=== PATIENT | male | born 1990 | race Caucasian/White ===

== ENCOUNTER 2024-04-18 21:50 | Inpatient (IN) ==
[2024-04-18] MEDS: fentaNYL citrate PF 100 MCG/2 ML VIAL ONE (22:14)
[2024-04-18] MEDS: fentaNYL citrate PF 100 MCG/2 ML VIAL IV STA (22:14)
[2024-04-18] MEDS: fentaNYL citrate PF 100 MCG/2 ML VIAL IV PRN (22:38)
[2024-04-18] MEDS: HYDROmorphone INJ 1 MG/ML SYRINGE IV STA ×2 (23:11→23:15)
--- NOTE | 2024-04-18 23:30 | XRay Report ---
Exam(s): XR RIGHT FEMUR, 2 views EXAM: XR Right Femur, 2 Views CLINICAL HISTORY: Reason for exam: fall. TECHNIQUE: Frontal and lateral views of the right femur. COMPARISON: No relevant prior studies available. FINDINGS: Bones/joints: Spiral fracture of the proximal femoral shaft. Soft tissues: Unremarkable. IMPRESSION: Spiral fracture of the proximal femoral shaft. Electronically signed by: Adi Acosta MD 04/18/24 23:29 PM
--- NOTE | 2024-04-18 23:31 | XRay Report ---
Exam(s): XR PELVIS, 1-2 views EXAM: XR Pelvis, 1 or 2 Views CLINICAL HISTORY: Reason for exam: fall, pain. TECHNIQUE: Frontal view of the pelvis. COMPARISON: No relevant prior studies available. FINDINGS: Bones/joints: No fracture or malalignment in the pelvis. Right subtrochanteric femoral fracture. IMPRESSION: 1. No fracture or malalignment in the pelvis. 2. Right subtrochanteric femoral fracture. Electronically signed by: Adi Acosta MD 04/18/24 23:30 PM
[2024-04-18] MEDS: SODIUM CHLORIDE 0.9% 1,000 ML IV SCH (23:40)
[2024-04-19] MEDS: HYDROmorphone INJ 0.5 MG/0.5 ML SYR IV PRN ×2 (00:43→04:20)
[2024-04-19] MEDS: LORazepam 1 MG TAB SL STA (01:08)
[2024-04-19] MEDS: ACETAMINOPHEN 1,000 MG/100 ML VIAL IV STA (01:10)
[2024-04-19] MEDS: LORazepam 1 MG/1 ML SYR ED Inj Use IV STA (01:15)
--- NOTE | 2024-04-19 01:41 | Emergency Department Note ---
History of Present Illness General Chief complaint: Hip Pain Stated complaint: R HIP PAIN History of Present Illness Maximum Pain Intensity: 4 This 33-year-old male who states he is healthy with no active medical problems who is visiting from [place] for his brothers upcoming marriage presents ER complaining of right hip and thigh pain after he fell on the ice tonight. Patient could not get up. Patient denies chest pain, dyspnea, abdominal pain, numbness, tingling, localized weakness. No prior fracture to this leg. Home Medications Medication Instructions Recorded Confirmed Type sertraline 100 mg tablet 200 mg PO DAILY 04/18/24 04/18/24 History trazodone 50 mg tablet 50 mg PO UD 04/18/24 04/18/24 History Past Med/Surg History Problem List (Updated 04/19/24 @ 01:41 by Arlen Meyer PA-C) Femur fracture, right (Acute) Social History Smoking Status: Never smoker Feels Safe at Home: Yes Review of Systems A total of 10 systems reviewed and were otherwise negative Physical Exam Vital Signs Vital Signs - 24 hr 04/18/24 22:03 04/18/24 22:03 04/18/24 22:48 Temperature 37.3 C 37.3 C Temperature Source Oral Oral Pulse Rate 75 Pulse Rate [Right Finger] 73 80 Pulse Rhythm Regular Pulse Rhythm [Right Finger] Regular Pulse Strength Normal Pulse Strength [Right Finger] Normal Respiratory Rate 18 18 22 Respiratory Effort / Characteristics Non-Labored Spontaneous Non-Labored Spontaneous Respiratory Depth Normal Normal Respiratory Pattern Regular Regular Blood Pressure 116/53 L Blood Pressure [Right Arm] 113/88 140/83 Blood Pressure Mean 74 Blood Pressure Mean [Right Arm] 96 102 Blood Pressure Position Lying Blood Pressure Position [Right Arm] Lying Pulse Oximetry 98 98 97 Oxygen Delivery Method Room Air Room Air Room Air Sepsis Recent Fever Within 48 Hours No Sepsis New/Unexplained Change in Mental Status No Sepsis Action Taken by Nursing No Action Required 04/19/24 00:07 Temperature Temperature Source Pulse Rate 72 Pulse Rate [Right Finger] Pulse Rhythm Pulse Rhythm [Right Finger] Pulse Strength Pulse Strength [Right Finger] Respiratory Rate Respiratory Effort / Characteristics Respiratory Depth Respiratory Pattern Blood Pressure Blood Pressure [Right Arm] Blood Pressure Mean Blood Pressure Mean [Right Arm] Blood Pressure Position Blood Pressure Position [Right Arm] Pulse Oximetry Oxygen Delivery Method Sepsis Recent Fever Within 48 Hours Sepsis New/Unexplained Change in Mental Status Sepsis Action Taken by Nursing VITALS: Vitals are noted on the nurse's note and reviewed by myself. Vital signs stable. GENERAL: Pleasant male who appears in pain, in no acute distress, nondiaphoretic, well-developed well-nourished. SKIN: The skin was without rashes, erythema, edema, or bruising. There is no tenting of the skin. Capillary reflex less than 2 seconds. HEAD: Normocephalic atraumatic. EARS: External auditory canals clear EYES: Pupils equal round and reactive to light and accommodation. Conjunctivae without injection, sclerae without icterus. Extraocular movements intact. NOSE: Patent, no discharge. MOUTH: Mucous membranes moist. Pharynx without erythema or exudate. Uvula midline. Airway patent. Tongue does not deviate. NECK: Supple without nuchal rigidity. No lymphadenopathy. No thyromegaly. Cervical spine is nontender. No JVD. HEART: Regular rate and rhythm LUNGS: Clear to auscultation bilaterally without wheezes, rales or rhonchi. No retractions or accessory muscle use. ABDOMEN: Positive bowel sounds x 4. Normal tympanic percussion. Soft, nontender, without masses or organomegaly. Swartz sign negative. No guarding or rebound tenderness. No CVA tenderness MUSCULOSKELETAL: No muscle atrophy, erythema, or edema noted. No thoracic or lumbar tenderness, right hip and proximal femur tender to palpation, right knee tib-fib ankle and foot nontender to palpation. All other extremities nontender to palpation. Pedal pulses +2 equal and present bilaterally. NEURO: Patient was alert and oriented to person place and time. Normal sensation to light and sharp touch. No focal neurological deficits. Course Administered Medications Discontinued Medications Fentanyl Citrate (Fentanyl Citrate Pf 100 Mcg/2 Ml Vial) Confirm Administered Dose 100 mcg .ROUTE .STK-MED ONE Stop: 04/18/24 22:02 Last Admin: 04/18/24 22:14 Dose: Not Given Documented By: CHARAN Fentanyl Citrate (Fentanyl Citrate Pf 100 Mcg/2 Ml Vial) 100 mcg IV NOW STA Stop: 04/18/24 22:03 Last Admin: 04/18/24 22:14 Dose: 100 mcg Documented By: CHARAN Fentanyl Citrate (Fentanyl Citrate Pf 100 Mcg/2 Ml Vial) 50 mcg IV Q15M PRN PRN Reason: Pain Stop: 05/02/24 22:01 Last Admin: 04/18/24 22:56 Dose: 50 mcg Documented By: Admin: 04/18/24 22:38 Dose: 50 mcg Documented By: CHARAN Hydromorphone HCl (Hydromorphone Inj 0.5 Mg/0.5 Ml Syr) 0.5 mg IV Q15M PRN PRN Reason: Pain Stop: 05/02/24 23:08 Last Admin: 04/19/24 00:43 Dose: 0.5 mg Documented By: PENNY Hydromorphone HCl (Hydromorphone Inj 1 Mg/Ml Syringe) 1 mg IV NOW STA Stop: 04/18/24 23:10 Last Admin: 04/18/24 23:15 Dose: 1 mg Documented By: CHARAN Hydromorphone HCl (Hydromorphone Inj 1 Mg/Ml Syringe) 1 mg IV NOW STA Stop: 04/18/24 23:11 Last Admin: 04/18/24 23:11 Dose: Not Given Documented By: CHARAN Sodium Chloride (Nss) 1,000 mls @ 125 mls/hr IV .Q8H MAYTE Stop: 04/19/24 23:14 Last Admin: 04/18/24 23:40 Dose: 125 mls/hr Documented By: PENNY Acetaminophen (Ofirmev) 1,000 mg in 100 mls @ 400 mls/hr IV NOW STA Stop: 04/19/24 01:17 Last Infusion: 04/19/24 02:41 Dose: Infused Documented By: Admin: 04/19/24 01:10 Dose: 400 mls/hr Documented By: PENNY Lorazepam (Lorazepam 1 Mg/1 Ml Syr Ed Inj Use) 1 mg IV ONE STA Stop: 04/19/24 01:03 Last Admin: 04/19/24 01:15 Dose: Not Given Documented By: PENNY Lorazepam (Lorazepam 1 Mg Tab) 1 mg SL NOW STA Stop: 04/19/24 01:04 Last Admin: 04/19/24 01:08 Dose: 1 mg Documented By: PENNY Medical Decision Making Medical Records Attestation: I reviewed the patient's medical records. Home Medications Current Medication List: was personally reviewed by me Laboratory Data Attestation: I reviewed the patient's lab results. 04/18/24 22:09 04/18/24 22:09 Lab Results 04/18/24 04/18/24 Range/Units 22:09 22:49 WBC 11.80 H (4.8-10.8) K/ul RBC 5.01 (4.70-6.10) M/uL Hgb 13.9 L (14.0-18.0) g/dl Hct 42.2 (42.0-52.0) % MCV 84.2 (80.0-100.0) fL MCH 27.7 (25.0-34.0) pg MCHC 32.9 (32.0-36.0) g/dL RDW Std Deviation 41.9 (36.4-46.3) fL RDW Coeff of [place] 13.6 (11.5-14.5) % Plt Count 287 (130-400) K/uL MPV 9.1 L (9.4-12.4) fL Immature Gran % (Auto) 0.5 % Neut % (Auto) 58.8 % Lymph % (Auto) 32.0 % Pope % (Auto) 6.4 % Eos % (Auto) 1.5 % Baso % (Auto) 0.8 % Neut # (Auto) 6.93 H (1.40-6.50) K/uL Lymph # (Auto) 3.78 H (1.20-3.40) K/uL Pope # (Auto) 0.75 H (0.11-0.59) K/uL Eos # (Auto) 0.18 (0.00-0.50) K/uL Baso # (Auto) 0.10 (0.00-0.20) K/uL Immature Gran # (Auto) 0.06 (0.01-0.20) K/uL Sodium 141 (136-145) mmol/L Potassium 3.6 (3.5-5.1) mmol/L Chloride 107 (98-107) mmol/L Carbon Dioxide 25 (21-32) mmol/L Anion Gap 9 (3-11) BUN 11 (6-23) mg/dl Creatinine 0.91 (0.6-1.4) mg/dl Est Cr Clr Drug Dosing 138.8 ml/min eGFR 114.13 BUN/Creatinine Ratio 12.1 (10-20) Glucose 115 H (70-99(Fasting)) mg/dl Calcium 8.9 (8.6-10.3) mg/dl Total Bilirubin 0.3 (0.2-1.0) mg/dl AST 17 (13-39) U/L ALT 12 (7-52) U/L Alkaline Phosphatase 52 (34-104) U/L Total Creatine Kinase 80 (30-223) U/L Total Protein 6.6 (6.0-8.3) gm/dl Albumin 4.6 (3.4-5.0) gm/dl Globulin 2.0 L (2.5-4.0) gm/dl Albumin/Globulin Ratio 2.3 H (0.9-2) Blood Type A Positive Antibody Screen NEGATIVE Imaging Data Attestation: I personally reviewed and interpreted this imaging study as follows: Radiologist's Impression: Femur X-Ray 04/18/24 22:02 Exam(s): XR RIGHT FEMUR, 2 views EXAM: XR Right Femur, 2 Views CLINICAL HISTORY: Reason for exam: fall. TECHNIQUE: Frontal and lateral views of the right femur. COMPARISON: No relevant prior studies available. FINDINGS: Bones/joints: Spiral fracture of the proximal femoral shaft. Soft tissues: Unremarkable. IMPRESSION: Spiral fracture of the proximal femoral shaft. Electronically signed by: Adi Acosta MD 04/18/24 23:29 PM Pelvis X-Ray 04/18/24 22:02 Exam(s): XR PELVIS, 1-2 views EXAM: XR Pelvis, 1 or 2 Views CLINICAL HISTORY: Reason for exam: fall, pain. TECHNIQUE: Frontal view of the pelvis. COMPARISON: No relevant prior studies available. FINDINGS: Bones/joints: No fracture or malalignment in the pelvis. Right subtrochanteric femoral fracture. IMPRESSION: 1. No fracture or malalignment in the pelvis. 2. Right subtrochanteric femoral fracture. Electronically signed by: Adi Acosta MD 04/18/24 23:30 PM [facility] Narrative prior records reviewed and summarized above. Triage Nursing notes reviewed. Additional history obtained from family The patient's history was concerning for right thigh hip injury. Differential diagnosis: Etiologies such as fracture, dislocation, neurovascular compromise, compartment syndrome, soft tissue injury, as well as others were entertained. Physical examination: Consistent with an isolated hip injury. ER treatment provided: IV lock Fentanyl, Dilaudid, Tylenol, Ativan NPO Bedrest On reassessment the patient felt better. Diagnostics interpreted by me: The labs Independently Interpreted by myself revealed blood bank was sent. Stable H&H, glucose 115 Imaging studies: Xrays reviewed and read by radiology The patient has right proximal femur fracture. Patient was placed in a knee immobilizer and neurovascular status was rechecked after placement is intact. Orthopedics was consulted and the case is discussed. Patient will be admitted to the orthopedic service. They recommend knee immobilizer and if this does not work then posterior long-leg. Patient was placed NPO. He is agreeable to treatment plan and was admitted to the orthopedic service. Consultation: A consultation was placed with orthopedics. The case was discussed and diagnostics were reviewed. The patient was evaluated in the ER for further treatment. The chart was completed utilizing [employer] Speech voice recognition software. Grammatical errors, random word insertions, pronoun errors, and incomplete sentences are an occassional consequence of this system due to software limitations, ambient noise, and hardware issues. Any formal questions or concerns about the content, text, or information contained within the body of this dictation should be directly addressed to the physician pharmacy technician assistant for clarification. Impression & Plan Femur fracture, right Discharge Plan Visit Data Chief Complaint: Hip Pain Stated Complaint: R HIP PAIN ED Provider: Yg Ruelas ED Midlevel Provider: Arlen Meyer Discharge Problem: Femur fracture, right Patient Disposition: Admitted As Inpatient Condition: Good Discharge Instructions Interventions: ED Discharge Assessment Last Done: 04/19/24 01:50 Discharge Problem: Femur fracture, right Qualifiers: Encounter type: initial encounter Femur location: unspecified portion of femur Fracture type: closed Fracture morphology: unspecified fracture morphology Q ualified Code(s): S72.91XA - Unspecified fracture of right femur, initial encounter for closed fracture
[2024-04-19] MEDS ORDERED: ONDANSETRON INJ 2 MG/ML 2 ML VIAL IV PRN ×2 (01:50→10:44)
[2024-04-19] MEDS ORDERED: diphenhydrAMINE 50 MG/ML VIAL IV PRN (01:50)
[2024-04-19] MEDS ORDERED: oxyCODONE HCL IR 5 MG TAB (IMMEDIATE RELEASE) PO PRN (01:50)
[2024-04-19 02:04] LABS: Basophils % (auto) 0.8 %; Eosinophils # (auto) 0.18 K/uL (0.00-0.50); Eosinophils % (auto) 1.5 %; Hematocrit (blood only) 42.2 % (42.0-52.0); Hemoglobin 13.9 g/dl (14.0-18.0); Immature Granulocytes # (auto) 0.06 K/uL (0.01-0.20); Immature Granulocytes % (auto) 0.5 %; Lymphocytes # (auto) 3.78 K/uL (1.20-3.40); Mean Corpuscular Hemoglobin 27.7 pg (25.0-34.0); Mean Corpuscular Hgb Conc 32.9 g/dL (32.0-36.0); Mean Corpuscular Volume 84.2 fL (80.0-100.0); Mean Platelet Volume 9.1 fL (9.4-12.4); Monocytes # (auto) 0.75 K/uL (0.11-0.59); Monocytes % (auto) 6.4 %; Neutrophils # (auto) 6.93 K/uL (1.40-6.50); Neutrophils % (auto) 58.8 %; Platelet Count 287 K/uL (130-400); RDW Coefficient of Variation 13.6 % (11.5-14.5); RDW Standard Deviation 41.9 fL (36.4-46.3); Red Blood Count 5.01 M/uL (4.70-6.10)
[2024-04-19 02:41] LABS: Albumin Globulin Ratio 2.3 (0.9-2); Albumin Level 4.6 gm/dl (3.4-5.0); BUN Creatinine Ratio 12.1 (10-20); Bilirubin,Total 0.3 mg/dl (0.2-1.0); Calcium 8.9 mg/dl (8.6-10.3); Creatinine Clr Calc Pharmacy 138.8 ml/min; Potassium 3.6 mmol/L (3.5-5.1); Total Protein 6.6 gm/dl (6.0-8.3)
--- NOTE | 2024-04-19 02:47 | Emergency Department Note ---
ED Visit Note I was consulted by the Advanced Practice Provider, Meg Meyer PA-C. I personally made/approved the management plan and take responsibility for the patient management. I performed a substantive portion of the visit. This includes the aspects of: -History/Physical/Personally seeing the patient -MDM -I independently interpreted the following studies: X-ray imaging of the right femur reveals a spiral fracture. Patient suffered a significant injury however there is no open wound. Neurovascular intact. Orthopedics was consulted and patient will be admitted on Dr. Devries service. 0230 hours patient reassessed and resting comfortably after medications. Orthopedics has already been consulted and admitted the patient. He was resting comfortably. Reexamined his leg and no significant bleeding within the thigh muscles appreciated. No signs of compartment syndrome. No tachycardia. Neurologically intact. .
[2024-04-19] MEDS: TRANEXAMIC ACID / 0.7% NACL 1000MG/100ML BAG IV ONE (02:59)
[2024-04-19] MEDS: LACTATED RINGER'S 1,000 ML IV SCH (03:00)
--- NOTE | 2024-04-19 03:07 | XRay Report ---
EXAM: XR chest 1V portable CLINICAL HISTORY: Pre-op. TECHNIQUE: X-ray image of the chest is obtained in AP projection. COMPARISON: No prior studies are available for comparison. FINDINGS: Pulmonary Parenchyma: Lungs are clear bilaterally. No evidence of consolidation, collapse, or focal opacities. No pulmonary nodules are identified. No evidence of pleural effusion or pleural thickening. Heart and Mediastinum: Heart size and shape are normal. No mediastinal widening or masses. No hilar or mediastinal lymphadenopathy. Bony Thorax: Bony thorax appears intact without fractures or deformities. Soft Tissues: Soft tissues overlying the chest wall are unremarkable. IMPRESSION: Normal chest X-ray. 1. No acute cardiopulmonary abnormalities are identified. Electronically signed by Kim Betancourt 04-19-2024 03:06 AM
[2024-04-19] MEDS: TRANEXAMIC ACID / 0.7% NACL 1,000 MG/100 ML BAG IV STA (03:15)
[2024-04-19] MEDS: Patient's ALLERGY Info needs ENTERED STA ×2 (03:21)
[2024-04-19] MEDS: TRANEXAMIC ACID / 0.7% NACL 1,000 MG/100 ML BAG IV ONE (03:36)
[2024-04-19] MEDS: ceFAZolin 2000MG 2,000 MG/15 ML SYR IV SCH ×2 (06:52→18:02)
--- NOTE | 2024-04-19 07:43 | History & Physical Report ---
Date of Service April 19, 2024 Assessment & Plan (1) Femur fracture, right: He is npo. I discussed treatment and recommended surgical fixation, IM nailing of this. Procedure was explained. Dr. Devries will see him as well. Continue pain control, bedrest, traction. He is hoping to be able to go home to [place] for recovery. History of Present Illness Chief Complaint: . Primary Care Provider: NO PCP . 33 year old patient from [place], visiting his brother in the area, slipped and fell on the ice last night and fractured his right femur. Pain has been re asonably controlled. He was placed in a knee immobilizer and traction. No other injuries. Denies pain in his leg prior to this fall. Allergies Allergy/AdvReac Type Severity Reaction Status Date / Time No Known Allergies Allergy Verified 04/19/24 02:48 Home Medications Medication Instructions Recorded Confirmed Type sertraline 100 mg tablet 200 mg PO DAILY 04/18/24 04/18/24 History trazodone 50 mg tablet 50 mg PO UD 04/18/24 04/18/24 History Past Med/Surg History Problem List Femur fracture, right (Acute) Social History Smoking Status: Never smoker Hx Alcohol Use: No Hx Substance Use: No Preferred Language: [place] Communication Ability: Effective Surfacing Machine Operator Required: No Beliefs That Will Affect Care: None Current Living Situation: Alone Other Information That Helps Us Care for You: No Feels Safe at Home: Yes Safety Concerns: Feels Safe At This Time Review of Systems All systems reviewed & are unremarkable except as noted in HPI & below. Physical Exam .alert and oriented. NAD VSS Right leg: immobilizer on. Thigh tender, swollen, compartments soft. Able to move toes appropriately. NVI. Skin intact around thigh. Results & Data Results & Data Laboratory Results . Diagnostic Findings . xrays show a comminuted displaced proximal 1/3 right femur fracture. PG Care Time/CCT Total # of Minutes Spent Total Time Spent with Patient: Total time spent is greater than 50% in coordination of care (as documented) at patient's floor/unit and/or counseling patient: Supervising Physician Co-Signing Physician Notes Agree with the above note. The patient was seen and evaluated this morning. History and exam confirmed. I reviewed the diagnosis and recommended treatment for surgical stabilization of his subtrochanteric femoral shaft fracture. I reviewed the risks, benefits, and alternatives to the surgical plan with the patient and his parents. Informed consent was confirmed and documented in the preoperative holding area. All in agreement to proceed with RIGHT FEMUR OPEN OR CLOSED REDUCTION AND INTERNAL FIXATION. Coding Level of Care Code 36773 INT INP/OBS CARE 3/75MIN (57 - DECISION FOR SURGERY) Diagnoses Femur fracture, right S72.91XA Encounter type: initial encounter Femur location: unspecified portion of femur Fracture morphology: unspecified fracture morphology Fracture type: closed (1) Femur fracture, right Encounter type: initial encounter Femur location: unspecified portion of femur Fracture morphology: unspecified fracture morphology Fracture type: closed Qualified Code(s): S72.91XA - Unspecified fracture of right femur, initial encounter for closed fracture
--- NOTE | 2024-04-19 07:49 | Anesthesiology Consultation ---
Date of Service April 19, 2024 Assessment & Plan Chart Review Chart Review: Acceptable Risk for Surgery and Patient NOT seen in Pre Admission Testing Consults Requested none ASA ASA2 Proposed Anesthesia Anesthesia Type: General History Surgery Operation Date: 04/19/24 13:00 Proposed Procedures p Intramedullary Itz Femur - Adi Devries MD Height/Weight Height: 6 ft 4 in Weight: 85 kg Allergies Allergy/AdvReac Type Severity Reaction Status Date / Time No Known Allergies Allergy Verified 04/19/24 02:48 Medications Home Medications Medication Instructions Recorded Confirmed Last Taken sertraline 100 mg tablet 200 mg PO DAILY 04/18/24 04/18/24 Unknown trazodone 50 mg tablet 50 mg PO UD 04/18/24 04/18/24 Unknown Active Medications Generic Name Dose Route Start Last Admin Trade Name Freq PRN Reason Stop Dose Admin Hydromorphone HCl 0.5 mg 04/19/24 01:50 04/19/24 04:20 Hydromorphone Inj 0.5 Mg/0.5 Ml Syr IV 05/03/24 01:49 0.5 mg Q3H PRN Administration Pain Cefazolin Sodium 2,000 mg in 15 mls @ 3.75 mls/min 04/19/24 06:00 04/19/24 06:52 Ancef 2000mg IV 04/19/24 10:06 3.75 mls/min PREOP MAYTE Administration Protocol Tranexamic Acid 1,000 mg in 100 mls @ 12.5 mls/hr 04/19/24 01:50 04/19/24 03:36 Tranexamic Acid / 0.7% Nacl IV 04/19/24 09:49 12.5 mls/hr .Q8H ONE Administration Lactated Ringer's 1,000 mls @ 125 mls/hr 04/19/24 01:50 04/19/24 03:00 Lr IV 04/20/24 01:49 125 mls/hr .Q8H MAYTE Administration Exercise / Class Metabolic Activity II 4-5 Yardwork/Stairs/Walk up hill Past Anesthesia History No Hx of Anesthesia Complications and No Family Hx of Anesthesia Complications History of PONV No Hx of PONV and No Hx of Motion Sickness Social History Smoking Status: Never smoker Hx Alcohol Use: No Hx Substance Use: No Physical Exam Vital Signs Last Vital Signs Temp 36.7 C 04/19/24 02:38 Pulse 78 04/19/24 06:57 Resp 20 04/19/24 06:00 BP 151/78 H 04/19/24 06:00 Pulse Ox 96 04/19/24 06:00 O2 Del Method Room Air 04/19/24 06:00 Testing Laboratory Results 04/18/24 22:09 04/18/24 22:09 Blood Type A Positive 04/18/24 22:49 Antibody Screen NEGATIVE 04/18/24 22:49 Chest X-Ray Date: 04/19/24 Findings: + NAD
[2024-04-19] MEDS ORDERED: PROPOFOL IV EMULSION 10 MG/ML 20 ML VIAL IV ONE (08:45)
[2024-04-19] MEDS ORDERED: DEXAMETHASONE SOD INJ 4 MG/ML VIAL ONE (08:45)
[2024-04-19] MEDS ORDERED: GLYCOPYRROLATE 0.2 MG/ML VIAL ONE (08:45)
[2024-04-19] MEDS ORDERED: fentaNYL citrate PF 100 MCG/2 ML VIAL ONE (08:45)
[2024-04-19] MEDS ORDERED: MIDAZOLAM HCL 1 MG/ML 2ML VIAL ONE (08:45)
[2024-04-19] MEDS ORDERED: LIDOCAINE 2% 2 ML VIAL/AMP(20MG/ML) INFIL ONE (08:45)
[2024-04-19] MEDS ORDERED: ONDANSETRON INJ 2 MG/ML 2 ML VIAL ONE (08:45)
[2024-04-19] MEDS ORDERED: KETAMINE HCL 10MG/ML SYR ONE (08:46)
[2024-04-19] MEDS: DOCUSATE SODIUM 100 MG CAP PO SCH (08:52)
[2024-04-19] MEDS ORDERED: Nursing to Pharmacy Communication SCH (09:00)
[2024-04-19] MEDS ORDERED: HYDROmorphone INJ 1 MG/ML SYRINGE IV PRN (10:44)
[2024-04-19] MEDS ORDERED: fentaNYL citrate PF 100 MCG/2 ML VIAL IV PRN (10:44)
[2024-04-19] MEDS ORDERED: ATROPINE SULFATE 0.1 MG/ML 10ML SYR IV PRN (10:44)
[2024-04-19] MEDS ORDERED: FLUMAZENIL 0.1 MG/1 ML 10 ML VIAL IV PRN (10:44)
[2024-04-19] MEDS ORDERED: ePHEDrine sulfate 50 MG/ML AMP IV PRN (10:44)
[2024-04-19] MEDS ORDERED: NALOXONE HCL 0.4 MG/1 ML VIAL/CARP IV PRN (10:44)
[2024-04-19] MEDS ORDERED: PROMETHAZINE HCL 6.25 MG in SODIUM CHLORIDE 0.9% 50 ML IV PRN (10:44)
--- NOTE | 2024-04-19 10:54 | History & Physical Bridge Note ---
Date of Service April 19, 2024 History & Physical Bridge Note I have examined the patient, reviewed the History & Physical and in the interval since the performance of the History & Physical I have noted the following changes of clinical significance: no changes noted
[2024-04-19] MEDS ORDERED: ceFAZolin 330 MG/ML 1 GM VIAL ONE (11:08)
[2024-04-19] MEDS ORDERED: SODIUM CHLORIDE 0.9% PF INJ 10 ML VIAL ONE (11:08)
[2024-04-19] MEDS: ceFAZolin 2000MG 2,000 MG/15 ML SYR IV ONE (11:15)
[2024-04-19] MEDS ORDERED: KETOROLAC 30 MG/ML VIAL ONE (11:23)
[2024-04-19] MEDS ORDERED: HYDROmorphone INJ 2 MG/ML SYR/VIAL ONE (11:31)
[2024-04-19] MEDS: BUPIVACAINE/EPINEPHRINE 0.5% MPF 1:200,000 30 ML VIAL ONE (12:47)
--- NOTE | 2024-04-19 13:58 | Post Operative Brief Note ---
PG Immediate Post Op with CF Date of Surgery April 19, 2024 Pre & Post Diagnosis Operation Date: 04/19/24 13:00 Pre-Op Diagnosis: Femur fracture, right Post-Op Diagnosis: Femur fracture, right I identified the patient and participated in the time-out.: Yes Procedure Operation Date: 04/19/24 13:00 Actual Procedures p Closed Reduction and Internal fixation of femoral shaft fracture with Cephalomedullary Nail (Right) - Adi Devries MD Surgeon Adi Devries MD Field Research Associate Gus Damon PA-C Estimated Blood Loss 250 Findings Consistent with Post-Op Diagnosis Specimens Specimen Description: None per surgeon Drains Ivey Catheter (inserted by Linnette Bermudez RN)
[2024-04-19] MEDS: MEPERIDINE HCL 25 MG/ML CARP/VIAL IV STA (14:20)
--- NOTE | 2024-04-19 14:24 | Anesthesiology Progress Note ---
Date of Service April 19, 2024 Anesthesia Post Procedure Vital Signs Vital Signs: Temp Pulse Pulse Pulse Resp BP BP 04/19/24 14:14 36.8 C 100 H 14 142/89 H 04/19/24 14:00 97 H 17 151/85 H 04/19/24 13:50 36.4 C L 99 H 16 147/88 H 04/19/24 13:40 94 H 15 156/88 H 04/19/24 13:30 94 H 15 145/84 H 04/19/24 13:20 93 H 12 147/84 H 04/19/24 13:10 93 H 14 145/83 H 04/19/24 13:03 36.3 C L 98 H 13 151/78 H 04/19/24 06:57 78 04/19/24 06:00 82 20 04/19/24 04:34 04/19/24 02:38 86 18 04/19/24 02:38 36.7 C 86 18 04/19/24 00:42 92 H 20 04/19/24 00:07 72 04/18/24 22:48 80 22 04/18/24 22:03 37.3 C 73 18 04/18/24 22:03 37.3 C 75 18 116/53 L BP Pulse Ox Pulse Ox O2 Del Method O2 Del Method O2 Flow Rate 04/19/24 14:14 99 Nasal Cannula 2 04/19/24 14:00 100 Nasal Cannula 2 04/19/24 13:50 100 Nasal Cannula 2 04/19/24 13:40 100 Nasal Cannula 2 04/19/24 13:30 92 Room Air 04/19/24 13:20 99 Oxymask 2 04/19/24 13:10 100 Oxymask 5 04/19/24 13:03 100 Oxymask 5 04/19/24 06:57 04/19/24 06:00 151/78 H 96 Room Air 04/19/24 04:34 97 Room Air 04/19/24 02:38 152/71 H 98 Room Air 04/19/24 02:38 152/71 H 97 Room Air 04/19/24 00:42 142/79 H 99 Room Air 04/19/24 00:07 04/18/24 22:48 140/83 97 Room Air 04/18/24 22:03 113/88 98 Room Air 04/18/24 22:03 98 Room Air Pain Intensity Right Hip: Pain Intensity: 4 Right Thigh: Pain Intensity: 3 Transfer of Care Handoff Completed per policy Notes Mental Status: alert / awake / arousable Patient Amnestic to Procedure: Yes Nausea / Vomiting: adequately controlled Pain: adequately controlled Airway Patency, RR, SpO2: stable & adequate BP & HR: stable & adequate Hydration State: stable & adequate Anesthetic Complications: no major complications apparent
--- NOTE | 2024-04-19 16:52 | XRay Report ---
HISTORY: Postoperative evaluation of the right femur. TECHNIQUE: Right femur, 4 views. COMPARISON: None. FINDINGS: Postsurgical changes are seen following internal fixation of a spiral fracture of the right proximal femurUtilizing a dynamic hip screw and a long intramedullary loree. There are 2 distal interlocking screws. Lateral soft tissue edema and overlying skin lorelei. There are locules of soft tissue gas, blood which are likely postsurgical. IMPRESSION: Internal fixation of a right proximal femur spiral fracture utilizing a dynamic hip screw and long intramedullary loree. Electronically signed by Yg Leach 04-19-2024 4:51 PM
[2024-04-19] MEDS: PANTOprazole 40 MG TAB PO SCH (17:22)
--- NOTE | 2024-04-19 17:47 | Operative Report ---
PG Post Operative Report Pre & Post Diagnosis Operation Date: 04/19/24 13:00 Pre-Op Diagnosis: Right subtrochanteric femur shaft fracture Post-Op Diagnosis: Right subtrochanteric femur shaft fracture I identified the patient and participated in the time-out.: Yes Procedure Operation Date: 04/19/24 13:00 Actual Procedures p right subtrochanteric femoral shaft fracture closed reduction and internal fixation with cephalomedullary nail (Right) - Adi Devries MD Surgeon Adi Devries MD [employer] Claims Adjuster Gus Damon PA-C Estimated Blood Loss 250 Findings Consistent with Post-Op Diagnosis Comminuted segmental femoral shaft fracture closed reduced. All Synthes implants: 11 mm/130 degree titanium cannulated trochanteric fixation nail of 440 mm length. Statically locked 11.0 mm titanium helical blade of 110 mm length. Distal interlock screws measuring 52 and 48 mm - 1 in a static hole and 1 at the middle of the dynamic slotted hole. Specimens none Anesthesia Type MAC Spinal Regional Complications none Disposition Accompanied Patient To Recovery: No Disposition: Surgical ICU Indications 33-year-old male slipped and fell directly onto his lateral hip resulting in his subtrochanteric femur fracture diagnosed in our emergency room. He was admitted overnight for surgical stabilization. No previous history of femur injuries. Denied any numbness or tingling. Reviewed the diagnosis, prognosis and treatment options, and I did recommend surgical stabilization of this fracture during the hospitalization. I reviewed the risks and benefits of surgical stabilization with an intramedullary nail. He was from the [facility] and would be returning there for aftercare. Recommended surgery before returning home. The risk, benefits and alternatives were all reviewed with the patient and his parents in the ER. Informed consent was obtained on the day of surgery as they were in agreement to proceed with the surgical treatment I had recommended Description of Procedure On the day of surgery, the patient was greeted in the preoperative holding area and the informed consent was reviewed and confirmed. The surgical site was then identified by the patient and signed by myself. The patient was taken to the operating room and placed upon the OR table. Anesthesia was induced. Airway was secured. The patient was then positioned on the fracture table. All luli prominences were well padded. The operative foot was placed in the fracture boot with abundant padding. The well leg was secured in the well-leg boot. We then positioned the lower extremities in a scissor fashion with a non-op leg flexed down to allow visualization with fluoroscopy, which was confirmed before we prepped and draped. Surgical timeout was called and verified by all present. Antibiotics and TXA were infused, and equipment was available and functional. The procedure was initiated with a closed reduction maneuvers. Gentle in-line traction pulled the fracture out to length. The limb was then internally rotated to reduce the proximal femur. Flexion and adduction were used to adjust the reduction and allow access to the greater trochanter. Abduction to get to the greater trochanter was necessary but he did both through the femoral shaft fracture. There was some extension to the fracture from the sag, but this was well-controlled with traction and slight manipulation manually. We had adequate reduction of the proximal segment prior to prepping and draping. The leg was then prepped and draped in usual sterile fashion. Surgical timeout was reconfirmed. We initiated the surgical internal fixation portion with finding the start point with the tip of the greater trochanter. Fluoroscopic guidance was used and a small poke hole was established. The start point was confirmed on fluoroscopy in AP and lateral planes and the pin was advanced using a pin local driver. An incision was made about the pin to allow access for the reamers. The pin was then advanced past the lesser trochanter in a manner that kept the wire against the lateral cortex to avoid deforming the fracture to varus. Its position was confirmed using AP and lateral fluoroscopy. Using the protective sleeve, the opening reamer was advanced under power with fluoroscopic guidance over the guidepin. It was advanced slowly towards the sub trochanteric region which was significantly comminuted. The reduction wire was then advanced down toward the distal femur to the level of the superior pole of the patella. This was done slowly because of the segmental comminution. Once the wire was in the proximal trochanteric region, limb was then abducted using the [place] table. This gain better alignment of the shaft. The ball-tipped wire was bent and would use that been to guide the wire down through the proximal diaphysis segment. Gentle elevation of the midshaft from posterior to anterior was conducted to assist the reduction. We remain blocked and tended exit through the obliquity of the midshaft. Rotation was adjusted to the [place] table. A long femoral reduction finger device was then slid over the proximal wire. I used fluoroscopy to guide this towards the midshaft where the wire seem to tend to exit. The reduction device was able to pass into the distal diaphysis with better control. The wire was then sent down the distal diaphysis. We watched on fluoroscopy as the wire entry towards the supracondylar femur to ensure it was well centered. His [place] femoral bow seemed to keep the wire towards the posterior cortex but it was in acceptable position. The reduction was studied on fluoroscopy. The wire was well- contained. Rotation and length seem to be well maintained. Measurement was taken from the tip of the trochanter down to the end of the guidewire, and the nail length was selected. We then began sequential reaming under fluoroscopic guidance through the diaphysis. We started with 9.0 and used fluoroscopy to guide our reaming. We advanced the reaming in gradual increments up to a 12.5 where there was sufficient chatter. An 11 mm nail was loaded onto the jig and advanced manually down the canal, while ensuring maintenance of the reduction on fluoroscopy. The nail was used to reduce the fracture somewhat. After passed to the proximal segment, the nail was lifted to gain access to the diaphysis. As the nail rotated down with the femoral below we gained a good reduction of the significantly flexed proximal segment. We then tapped it down into place until we achieve the good position for our cephalo-medullary screw. The cannula was placed on the jig to allow positioning of the cephalo-medullary screw. The skin incision was made in the appropriate spot. The jig cannulas we re then placed against the lateral cortex. The jig cannula help to push that proximal segment into a better reduced position. The cephalo-medullary screw guidepin was advanced towards the femoral head. The center-center position was confirmed on fluoroscopy in AP and lateral planes. The length of the screw was measured off the guide. The helical blade screw was then opened on the back table and prepared on the screwdriver. The lateral cortical opening drill, followed by the triple drill reamer for the helical blade was advanced under fluoroscopic guidance. The helical blade was advanced over the guidepin to appropriate position. The helical blade was locked in rotation and then the traction was taken off. Fluoroscopy confirmed maintenance of reduction and adequate position of the implant. The compression sleeve was then advanced against the lateral femur to improve the trochanteric-shaft reduction. Attention was then directed distally to perform the interlock screws using p erfect nondalton technique. 1 interlock screw was placed with a 5 mm diameter in the midpoint of the slotted dynamic distal interlock position, in case of need to dynamize at a later time. The length was measured using a depth gauge, with fluoroscopic guidance. Because of the comminuted subtrochanteric region, the distal segment was statically locked using an additional interlock screw. This completed the fixation. There was a large reactive knee effusion that was palpable and tense, so an 18- gauge needle was accessed through the superior lateral capsule and 15 mL of reactive synovial fluid was aspirated. This significantly deflated the tense effusion. This completed the fixation of the fracture. Fluoroscopy was used in both AP and lateral planes to evaluate the entirety of the fracture and implant. Reduction and implant positions were acceptable. The wounds were then thoroughly irrigated with bulb syringe and normal saline. The deep fascial layer was approximated with 0 Vicryl suture. The dermal layer was approximated using 2-0 Vicryl suture. The final skin closure was completed with lorelei. Wounds were dressed with sterile Xeroform, sterile gauze, and Ioban over ABDs. The patient tolerated the procedure well, awoke from anesthesia without complication, was extubated in the operating room, and transferred to the recovery area in stable condition. Disposition: I will recommend partial weightbearing for the first 4 weeks, and then advance as tolerated. Likely he will need to be followed by a local orthopedic surgeon in [place]. I recommended routine DVT prophylaxis consisting of oral aspirin, DVT prophylaxis should last 6 weeks. 24 hours of antibiotic prophylaxis should be continued. He will be evaluated by PT and OT for safety at discharge. The patient's parents stated they desired to take him back to [place] when medically reasonable. Will see how well pain is controlled and how he responds to therapy tomorrow. Physician tmd teacher assistant attestation: Gus Damon PA-C was present and scrubbed for the duration of the case. He was essential to prepping/draping, patient positioning, reduction maneuvers and instrumentation, and assistance with wound closure. I attest to the content of the Intraoperative Record and any orders documented therein. Any exceptions are noted below.
[2024-04-19] MEDS: SERTRALINE HCL 100 MG TABLET PO SCH (18:01)
[2024-04-19] MEDS: traZODone HCL 50 MG TAB PO SCH (20:20)
[2024-04-19] MEDS: ACETAMINOPHEN 500 MG TAB PO PRN (23:49)
[2024-04-20 07:58] LABS: Hematocrit (blood only) 25.9 % (42.0-52.0); Hemoglobin 8.4 g/dl (14.0-18.0); Mean Corpuscular Hemoglobin 27.5 pg (25.0-34.0); Mean Corpuscular Hgb Conc 32.4 g/dL (32.0-36.0); Mean Corpuscular Volume 84.9 fL (80.0-100.0); Mean Platelet Volume 9.4 fL (9.4-12.4); Platelet Count 150 K/uL (130-400); RDW Coefficient of Variation 13.8 % (11.5-14.5); RDW Standard Deviation 42.7 fL (36.4-46.3); Red Blood Count 3.05 M/uL (4.70-6.10); White Blood Count 10.02 K/ul (4.8-10.8)
[2024-04-20 08:00] LABS: Basophils # (auto) 0.02 K/uL (0.00-0.20); Basophils % (auto) 0.2 %; Eosinophils # (auto) 0.02 K/uL (0.00-0.50); Eosinophils % (auto) 0.2 %; Immature Granulocytes # (auto) 0.04 K/uL (0.01-0.20); Immature Granulocytes % (auto) 0.4 %; Lymphocytes # (auto) 1.59 K/uL (1.20-3.40); Lymphocytes % (auto) 15.9 %; Monocytes # (auto) 1.11 K/uL (0.11-0.59); Monocytes % (auto) 11.1 %; Neutrophils # (auto) 7.24 K/uL (1.40-6.50); Neutrophils % (auto) 72.2 %
--- NOTE | 2024-04-20 08:10 | Fluoroscopy Report ---
FL femur RT 2V CLINICAL HISTORY: RT IM GHULAM FEMUR COMPARISON STUDY: Right femur radiographs April 18, 2024. FLUOROSCOPY TIME: 3 minutes and 36 seconds. Ka,r: 46.49 mGy FLUOROSCOPIC IMAGES: 7 FINDINGS: Fluoroscopy was provided during open reduction and internal fixation of the subtrochanteric right femoral fracture with intramedullary ghulam and trochanteric nail. Fracture alignment has signifi cantly improved and appears near anatomic. There are distal screws. IMPRESSION: Fluoroscopy provided during open reduction and internal fixation of the subtrochanteric right femoral fracture. ACT 112: Negative or not required by law. Electronically signed by: David Kwon M.D. 04/20/2024 8:08 AM
[2024-04-20 08:13] LABS: BUN Creatinine Ratio 15.1 (10-20); Potassium 3.7 mmol/L (3.5-5.1)
[2024-04-20] MEDS: ASPIRIN 81 MG ECTAB PO SCH (08:32)
--- NOTE | 2024-04-20 09:46 | Orthopedic Progress Note ---
Date of Service April 20, 2024 Assessment & Plan (1) Femur fracture, right: (2) Vitamin D deficiency: (3) History of hip surgery: Plan POD1 right femur fracture intramedullary nail. Making expected progress. Symptomatic acute blood loss anemia not unexpected -Partial weightbearing to right lower extremity, range of motion as tolerated -DVT PPx: Daily aspirin -Finish 24 hours antibiotics today -PT/OT eval's for disposition planning. Parents are here and wished to bring him back to [place] when stable. Dispo: Likely no earlier than 04/21/2024 given their planned travel. Will see how he does today with therapy. Need to observe symptomatic anemia another 24 hours, at least Subjective Reports tolerable pain but had some dizziness when he sat up today. No acute issues. Review of Systems All systems reviewed & are unremarkable except as noted in HPI & below. Physical Exam Sitting at the bedside chair. Appears comfortable. RLE: Dressings are clean dry and intact. He can activate his quad and extend his knee with some stiffness. DNVI Constitutional WD/WN, vitals as above no acute distress and not intoxicated appearing Respiratory normal respiratory effort; no labored breathing Cardiovascular Extremities: normal capillary refill Results & Data Results & Data Laboratory Results H & H 04/18/24 04/20/24 Range/Units 22:09 06:50 Hgb 13.9 L 8.4 L D (14.0-18.0) g/dl Hct 42.2 25.9 L (42.0-52.0) % Diagnostic Findings . PG Care Time/CCT Total # of Minutes Spent Total Time Spent with Patient: Total time spent is greater than 50% in coordination of care (as documented) at patient's floor/unit and/or counseling patient: Coding Level of Care Code 35533 Post Operative Follow-Up Diagnoses Femur fracture, right S72.91XA Encounter type: initial encounter Femur location: unspecified portion of femur Fracture morphology: unspecified fracture morphology Fracture type: closed Vitamin D deficiency E55.9 History of hip surgery Z98.890 (1) Femur fracture, right Encounter type: initial encounter Femur location: unspecified portion of fe mur Fracture morphology: unspecified fracture morphology Fracture type: closed Qualified Code(s): S72.91XA - Unspecified fracture of right femur, initial encounter for closed fracture
[2024-04-21] MEDS: KETOROLAC TROMETHAMINE 15 MG/ML VIAL IV PRN (03:20)
--- NOTE | 2024-04-21 09:12 | Orthopedic Progress Note ---
Date of Service April 21, 2024 Assessment & Plan (1) History of hip surgery: Postop day 2 from a right hip femoral shaft fracture closed reduction internal fixation with cephalomedullary nail -Continue dressing until postop day 3 when it can be removed. Would recommend daily dressing changes until he is home. He does not need to have a dressing on unless the wound is bothersome to him or it is draining. -I understand that he is from [place], therefore his family is going to be taking him there once he is discharged. He already has phone calls made for physical therapy as well as for an orthopedic provider in [place]. -Continue to work with PT/OT. I would like his lightheadedness to get a little better prior to discharge. -Discharge pending PT/OT lightheadedness and H&H which I have just placed lab work for. Subjective Operation Date: 04/19/24 13:00 Actual Procedures p right subtrochanteric femoral shaft fracture closed reduction and internal fixation with cephalomedullary nail (Right) - Adi Devries MD David is a 33-year-old male who is postop day 2 from a right subtrochanteric femoral shaft fracture closed reduction internal fixation. He is doing well. He is resting comfortably in his hospital recliner with his knee at 90 degrees. He is awaiting possible discharge. States that he has walked with physical therapy with his walker multiple times over the weekend. States that he does feel little lightheaded when he walks extended. Of time. He has not had any lab work this morning, therefore I placed new lab work to check his H&H. He has been partial weightbearing in the right lower extremity. Taking aspirin for DVT prophylaxis. He lives in [place] and is here visiting some family. Would like to get home to [place] as soon as possible. Review of Systems All systems reviewed & are unremarkable except as noted in HPI & below. Physical Exam General: Alert and oriented. No acute distress. Right lower extremity: Right hip dressing without saturation. It is dry and intact. Not taken down as he is not postop day 3 yet. He has good range of motion of the right knee as he is at 90 degrees in his hospital recliner. Minimal edema to the right lower extremity. He is neurovascularly intact right lower extremity. Results & Data Results & Data Laboratory Results . Diagnostic Findings . PG Care Time/CCT Total # of Minutes Spent Total Time Spent with Patient: Total time spent is greater than 50% in coordination of care (as documented) at patient's floor/unit and/or counseling patient: Coding Level of Care Code 49272 Post Operative Follow-Up Diagnoses History of hip surgery Z98.890
[2024-04-21 09:50] LABS: Albumin Globulin Ratio 1.6 (0.9-2); Albumin Level 3.8 gm/dl (3.4-5.0); BUN Creatinine Ratio 11.9 (10-20); Bilirubin,Total 0.6 mg/dl (0.2-1.0); Calcium 8.8 mg/dl (8.6-10.3); Creatinine Clr Calc Pharmacy 188.5 ml/min; Globulin 2.4 gm/dl (2.5-4.0); Potassium 4.1 mmol/L (3.5-5.1); Total Protein 6.2 gm/dl (6.0-8.3)
[2024-04-21 12:11] LABS: Basophils # (auto) 0.03 K/uL (0.00-0.20); Basophils % (auto) 0.3 %; Eosinophils # (auto) 0.04 K/uL (0.00-0.50); Eosinophils % (auto) 0.4 %; Hemoglobin 8.8 g/dl (14.0-18.0); Immature Granulocytes # (auto) 0.05 K/uL (0.01-0.20); Immature Granulocytes % (auto) 0.5 %; Lymphocytes # (auto) 1.34 K/uL (1.20-3.40); Lymphocytes % (auto) 14.4 %; Mean Corpuscular Hemoglobin 27.8 pg (25.0-34.0); Mean Corpuscular Hgb Conc 32.6 g/dL (32.0-36.0); Mean Corpuscular Volume 85.4 fL (80.0-100.0); Mean Platelet Volume 8.9 fL (9.4-12.4); Monocytes # (auto) 0.97 K/uL (0.11-0.59); Monocytes % (auto) 10.5 %; Neutrophils # (auto) 6.85 K/uL (1.40-6.50); Neutrophils % (auto) 73.9 %; Platelet Count 148 K/uL (130-400); RDW Coefficient of Variation 13.8 % (11.5-14.5); Red Blood Count 3.16 M/uL (4.70-6.10); White Blood Count 9.28 K/ul (4.8-10.8)
--- NOTE | 2024-04-21 12:24 | Discharge Summary ---
Date of Service April 22, 2024 Admission HPI (Per Admitting) 33 year old patient from [place], visiting his brother in the area, slipped and fell on the ice last night and fractured his right femur. Pain has been reasonably controlled. He was placed in a knee immobilizer and traction. No other injuries. Denies pain in his leg prior to this fall. Admission Exam (Per Admitting) .alert and oriented. NAD VSS Right leg: immobilizer on. Thigh tender, swollen, compartments soft. Able to move toes appropriately. NVI. Skin intact around thigh. Principal Diagnosis Same as "Discharge Diagnosis" noted below under Discharge Instructions. Discharge Exam General: Alert and oriented. No acute distress. Right lower extremity: Right hip dressing without saturation. It is dry and intact. Not taken down as he is not postop day 3 yet. He has good range of motion of the right knee as he is at 90 degrees in his hospital recliner. Minimal edema to the right lower extremity. He is neurovascularly intact right lower extremity. Discharge Data Consultations 04/18/24 23:15 ED Decision to Admit Stat Procedures Performed Operation Date: 04/19/24 13:00 Actual Procedures p Long Trochanteric Nail Right Femur(Right) - Adi Devries MD Ordered Studies 04/19/24 FL femur RT 2V Routine Hospital Course (1) History of hip surgery: PG Care Time/CCT Total # of Minutes Spent Total Time Spent with Patient: Total time spent is greater than 50% in coordination of care (as documented) at patient's floor/unit and/or counseling patient: Discharge Plan Discharge Items Patient Disposition: Home - Self-Care Reason For Visit: RIGHT FEMUR FRACTURE Discharge Diagnosis: Right femoral shaft fracture Condition on Discharge: Good Activity: Per Instructions section Non-emergency contact: Surgeon Call non-emergency contact if: your pain is not controlled and your temperature is above 101 Follow-up/Referrals: Adi Devries MD [Surgeon] - PCP,NO [Primary Care Provider] - Diet: Regular Addtl Attending Provider Instructions: Adi Devries MD [facility] Orthopedic Sports Medicine [facility] Orth[facility] Surgery DISCHARGE INSTRUCTIONS FOR FEMUR FRACTURE SURGERY WEIGHTBEARING: Partial weightbearing for 4 weeks Crutches or Walker at all times. Partial (<50%) Weightbearing means may place your foot on the ground, but do not transfer more than 50% of your weight or stride on the leg. WOUND CARE: Leave the dressing in place and keep the area clean and dry. After 3 days, you may remove your dressing. DO NOT REMOVE ANY SUTURES OR MAURISIO. THEY WILL BE REMOVED BY YOUR ORTHOPEDIC TEAM IN CLINIC. After removing your dressing, you may begin to shower. Do not soak the incision. Allow gentle soap and water to run over the wound(s) and pat dry. Please cover the incision(s) with a clean, dry dressing, as needed. Do not use any ointments or topical medications unless directed by your surgeon. Do not submerse the incisions in water no pools, oceans, lakes, jacuzzis, bathtubs, etc for at least 3 weeks. PAIN CONTROL Use ice for 30 minutes per hour. Do not leave in place longer than 30 minutes, to prevent frostbite or thermal injury. MEDICATIONS: 1. Oxycodone (OxyIR) 1-2 tablet(s) orally every 4 hours for pain as needed. Use with Tylenol. Begin tapering OxyIR as soon as possible: reduce from 2 to 1 pills per dose, then spread out the doses over greater time int ervals, then try to use only for therapy or for comfort while sleeping. Continue to use regular Tylenol until pain subsides. 2. Tylenol (325mg): 3 tablets every 8 hours orally. Regular dosing of Tylenol is an important part of your baseline pain control. Do not taper Tylenol until you have successfully tapered off of regular OxyIR. Do not take more than 3000mg of Tylenol per day. 3. Aspirin 81m tablet orally twice per day for 6 weeks to reduce the risk of dangerous blood clots. 4. Talk to your primary care about starting Vitamin D supplementation for measured deficiency (12ng/ml - normal 30-100) CONSTIPATION: Narcotic pain medications can slow down your digestive track, leading to constipation. Stay hydrated. While taking narcotics, the use of stool softeners is recommended. Two over the counter options are: 1. Colace (100mg): take 1-2 tabs twice daily to avoid constipation from OxyIR or other narcotics. 2. Miralax 1 tablespoon in a glass of water 2 times daily until normal bowel movements FOLLOWUP: 1. Ortho Clinic: You should be seen in 10-14 days. Please call immed iately to schedule if you do not have an appointment. WHEN TO CALL. If you develop any of the following symptoms, please contact the Orthopedic Clinic at [phone]: Temperature greater than 101 taken twice, difficulty breathing, bleeding, fever and chills, increased pain unrelieved by pain meds, uncomfortable cast or splint, or any other concerns. Pending Studies at Discharge: No Stand-Alone Forms: My [facility], Pain - Opioid Pain Management, Smoking Cessation Medications and DC Order Prescriptions: New acetaminophen [Tylenol Extra Strength] 500 mg Tablet 1,000 mg PO Q8H PRN (Reason: pain) Qty: 90 0RF aspirin 81 mg Tablet,Delayed Release (Dr/Ec) 81 mg PO BID Qty: 90 0RF aspirin 81 mg tablet,delayed release (DR/EC) 81 mg PO BID 45 Days Qty: 90 0RF ondansetron 4 mg tablet,disintegrating 4 mg PO Q6H PRN (Reason: nausea and vomiting) Qty: 10 0RF oxycodone 5 mg tablet 5 - 10 mg PO Q4H MDD 6 tablets PRN (Reason: post operative pain) Qty: 30 0RF Continued trazodone 50 mg tablet 50 mg PO UD sertraline 100 mg tablet 200 mg PO DAILY Discharge Orders: Discharge Order (Routine); Ordered 04/21/24 Ordered By: Marylu Salazar/Other Patient Handouts: Vitamin D Admission Data Admit Date/Time: 04/19/24 00:13 Attending Provider: Adi Devries Admit Provider: Adi Devries Primary Care Provider: PCP,NO Other Interventions: Discharge Summary Assessment (RN) Last Done: 04/22/24 07:02
[2024-04-21 19:19] VITALS: O2SAT 100
[2024-04-22 07:25] VITALS: BP 105/63; PULSE 91; RESP 18; TEMP 98.1
--- NOTE | 2024-04-22 10:46 | Orthopedic Progress Note ---
Date of Service April 22, 2024 Assessment & Plan (1) History of hip surgery: Postop day 3 from a right hip femoral shaft fracture closed reduction internal fixation with cephalomedullary nail -Dressings may be changed today prior to discharge. -I understand that he is from [place], therefore his family is going to be taking him there once he is discharged. He already has phone calls made for physical therapy as well as for an orthopedic provider in [place]. -Continue to work with PT/OT. -Discharge to home this morning. Discharge order and instructions were placed. Subjective . David was seen and evaluated this morning resting comfortably no apparent distress. He is status post day 3 from a right subtrochanteric femoral shaft fracture closed reduction internal fixation. He is doing very well today with good pain control to the right lower extremity. He is sitting at bedside in the hospital recliner with his knee bent at 90 degrees. He is scheduled to be discharged this morning once his parents arrive to the hospital. He has been working with physical therapy multiple times throughout his course here with the use of a walker. He notes is going very well. He is currently partial weightbearing to the right lower extremity. He is taking aspirin for DVT prophylaxis. He lives in [place] so he will be discharged today and return to [place] where he will continue his medical care. He denies any other concerns today. Review of Systems All systems reviewed & are unremarkable except as noted in HPI & below. Physical Exam .General: Alert and oriented. No acute distress. Right lower extremity: Right hip dressing without saturation. It is dry and intact. Not taken down as he is not postop day 3 yet. He has good range of motion of the right knee as he is at 90 degrees in his hospital recliner. Minimal edema to the right lower extremity. He is neurovascularly intact right lower extremity. Results & Data Results & Data Laboratory Results . Diagnostic Findings . PG Care Time/CCT Total # of Minutes Spent Total Time Spent with Patient: Total time spent is greater than 50% in coordination of care (as documented) at patient's floor/unit and/or counseling patient: Coding Level of Care Code 46663 Post Operative Follow-Up Diagnoses History of hip surgery Z98.890
== END 2024-04-22 09:34 | disposition home or self-care (01) | DRG 481 ==
LOC: ED 21:50 → EDINP 04-19 00:13 → 3N 04-19 14:14
DX: E55.9 Vitamin D deficiency, unspecified; D62 Acute posthemorrhagic anemia; W00.0XXA Fall on same level due to ice and snow, initial encounter; S72.21XA Displaced subtrochanteric fracture of right femur, initial encounter for closed fracture; Y92.89 Other specified places as the place of occurrence of the external cause